=== PATIENT | female | born 1970 | race American Indian/Alaskan Native ===

== ENCOUNTER 2018-01-21 09:32 | Outpatient (CLI) | payer MEDICARE ==
--- NOTE | 2018-01-24 07:49 | XRay Report ---
BILATERAL KNEES STANDING, AP VIEW Pain in the bilateral. Findings: Internal fixation hardware is noted in the distal right femur and bilateral proximal tibias. Please correlate with surgical history. There are moderate to severe posttraumatic or osteoarthritic changes in the medial and lateral compartments of the right knee. The left knee joint space is within normal limits. No evidence for acute fracture or bone lesion. The soft tissues are unremarkable. Impression: Surgical changes as described. Moderate to severe degenerative changes in the right knee.
--- NOTE | 2018-01-24 07:50 | XRay Report ---
RIGHT FEMUR, 2 VIEWS History: Pain in right thigh. Findings: A remodeling fracture of the right femoral shaft is identified. An intramedullary jimmie is in place. A femoral neck screw has been removed. Please correlate with the patient's surgical history. No evidence for acute fracture, bone lesion or bony destruction. The soft tissues are unremarkable. Impression: Remodeling, internally fixated right femoral fracture.
== END 2018-01-21 09:33 | disposition home or self-care (01) ==
LOC: XRAY 09:32
PROVIDERS: ATTEND Orthopaedic Surgery
DX: S72.91XA Unspecified fracture of right femur, initial encounter for closed fracture (principal); M17.11 Unilateral primary osteoarthritis, right knee
CPT/HCPCS: 73565

== ENCOUNTER 2021-05-28 12:56 | Outpatient (CLI) | payer MEDICARE ==
--- NOTE | 2021-05-28 14:38 | XRay Report ---
XR knees standing AP Bilateral INDICATION: LEFT KNEE PAIN. COMPARISON: No relevant prior imaging study available. FINDINGS: There is moderate to advanced tricompartmental osteoarthrosis greater at the right knee. Distal right femoral and bilateral proximal tibial ORIF hardware projects in expected position on this single vie w. There is significant remodeling of the occluded distal right femur, presumably related to healed f racture. No soft tissue swelling is seen. No acute fracture is identified. IMPRESSION: 1. No acute findings. Signer Name: Josh Cyr MD Signed: 05/28/2021 2:33 PM Workstation Name: [email or web address]
== END 2021-05-28 12:57 | disposition home or self-care (01) ==
LOC: XRAY 12:56
PROVIDERS: ATTEND Orthopaedic Surgery
DX: M17.11 Unilateral primary osteoarthritis, right knee (principal); M25.562 Pain in left knee
CPT/HCPCS: 73565

== ENCOUNTER 2022-01-19 14:29 | Outpatient (CLI) | payer MEDICARE ==
--- NOTE | 2022-01-19 15:46 | XRay Report ---
Lumbar spine INDICATION: Back pain FINDINGS: Alignment appears normal. Mild endplate changes and facet arthropathy throughout. No sublux ation is seen. Visualized sacrum appears normal. Signer Name: Jt Gagnon MD Signed: 01/19/2022 3:42 PM Workstation Name: [email or web address]
== END 2022-01-19 14:30 | disposition home or self-care (01) ==
LOC: XRAY 14:29
PROVIDERS: ATTEND Orthopaedic Surgery
DX: M47.816 Spondylosis without myelopathy or radiculopathy, lumbar region (principal)
CPT/HCPCS: 72110